=== PATIENT | female | born 1970 | race Caucasian/White ===

== ENCOUNTER 2020-12-06 15:53 | Emergency (ER) | payer OTHER ==
[2020-12-06 16:19] VITALS: BP 113/63; PULSE 66; TEMP 98.2; BMI 27.4
[2020-12-06] MEDS ORDERED: IBUPROFEN 400 MG TABLET (FP) PO ONE ×2 (17:28→17:31)
== END 2020-12-06 17:53 | disposition home or self-care (01) ==
LOC: JER 15:53 → JERFT 15:53
DX: S93.402A Sprain of unspecified ligament of left ankle, initial encounter (principal)
CPT/HCPCS: 73610-TC-LT-FY; 73630-TC-LT; 99284-25